=== PATIENT | male | born 1990 | race Caucasian/White ===

== ENCOUNTER 2021-04-14 10:39 | Emergency (ER) | payer OTHER, BC ==
[~2021-04-14] VITALS: Ht 190.5 cm; Wt 75.0 kg
[2021-04-14] MEDS ORDERED: NORCO 325 MG-51 TAB PO (11:39)
[2021-04-14 11:57] VITALS: BP 128/62; PULSE 70; TEMP 98
== END 2021-04-14 12:01 | disposition home or self-care (01) ==
LOC: COL.ER 10:39
DX: T22.211A Burn of second degree of right forearm, initial encounter (principal); T20.22XA Burn of second degree of lip(s), initial encounter; X08.8XXA Exposure to other specified smoke, fire and flames, initial encounter